=== PATIENT | male | born 1990 | race Caucasian/White ===

== ENCOUNTER → 2023-12-21 10:01 | Outpatient (REF) | payer MEDICARE, SELFPAY | LOC: HWRCS 10:01 | PROVIDERS: ATTENDING PHYSICIAN Family Medicine | DX: I10 Essential (primary) hypertension (principal) | CPT/HCPCS: 93306 ==

== ENCOUNTER 2025-05-11 01:15 | Emergency (ER) | payer OTHER, SELFPAY ==
[2025-05-11 01:16] VITALS: BP 142/94
--- NOTE | 2025-05-11 02:32 | EDRN ---
Lawrence tape applied with cast shoe as well.
--- NOTE | 2025-05-11 02:37 | ED.MUSCINJ ---
HPI-Injury
General
Chief Complaint: Musculo-Skeletal Complaint
Source: patient and family
Time Seen by Provider: 05/11/25 01:23
Nursing documentation reviewed up to this point in time: agreed with
History of Present Illness-Injury
Initial Injury comments:
Note:
CHIEF COMPLAINT(S)
Toe injury with pain and possible dislocation.
HISTORY OF PRESENT ILLNESS
The patient is a 35-year-old male who presents with a toe injury. The patient reports he accidentally struck his toe against a door frame with significant force, which caused immediate pain such that he had to sit down, describing that he was
'seeing stars.' Upon examination of his toe, he noted that it appeared 'loose' and 'floppy.' The patient attempted to apply pressure to the affected area, which increased the pain. He describes persistent discomfort that worsens with pressure
application. The injury primarily affects the little toe, with concerns of it potentially being slightly dislocated, as suggested by its floppiness and alignment.
REVIEW OF SYSTEMS
- Musculoskeletal: Experiencing pain and potential dislocation in the little toe, as described by floppiness and increased pain upon pressure.
PHYSICAL EXAM
General: Alert, no acute distress.
Skin: Warm, dry.
Head: Normocephalic, atraumatic.
Neck: Supple, trachea midline.
Eye Ears, nose, mouth and throat: Oral mucosa moist.
Cardiovascular: Normal peripheral perfusion, No edema.
Respiratory: Respirations are non-labored.
Gastrointestinal : Abdomen nondistended
Musculoskeletal: Abnormal findings reported in the toe (patient-reported floppiness, increased pain upon pressure).
Neurological: Alert and oriented to person, place, time, and situation, No focal neurological deficit observed.
Psychiatric: Cooperative, appropriate mood & affect.
PLAN
1. Perform a physical assessment to evaluate the extent of the toe injury and determine if dislocation or fracture is present.
2. Discuss potential imaging such as an X-ray if dislocation or fracture is suspected based on the physical examination.
3. Discuss treatment options based on findings, which could include pain management and possible referral for orthopedic intervention if necessary.
DIFFERENTIAL DIAGNOSIS
The Differential Diagnosis includes, in no particular order and is not limited to:
1. Toe fracture-not seen on x-ray
2. Toe dislocation-distal dislocation
3. Soft tissue injury such as a sprain
4. Ligamentous injury
5. Contusion
6. Nail bed injury�no injury seen.
7. Metatarsal fracture�no fracture seen on x-ray
8. Subluxation
9. Tendon injury
CARE-UPDATE
05/11/25 - :02
Performed reduction of the distal phalanx on the right first toe successfully. Patient exhibited no immediate complications. Ordered post-reduction X-rays to confirm joint alignment.
CARE-UPDATE
05/11/25:26
Multiple attempts to reduce the toe have been unsuccessful on follow-up x-ray. The patient refused another attempt at reduction. He will be placed in a cast. The patient presents with good pulse, motor, and sensory function in the affected toe.
Follow-up with orthopedics is planned.
Disposition:
SUMMARY OF ENCOUNTER
The patient presented with a dislocated fifth toe on the right foot after striking it against a door frame. Multiple attempts to reduce the dislocation in the emergency department were unsuccessful. The toe remained dislocated, and the patient was
placed in a cast. Laura taping was applied, and follow-up care was discussed.
PLAN
The patient is advised to keep the toe laura-taped and to follow up with [facility] for further management.
INDEPENDENT REVIEW OF LABS AND INTERPRETATION OF TESTS
My independent interpretation of the x-rays provided indicates a distal dislocation of the fifth toe on the right foot.
PROCEDURES
Attempted reduction of the distal phalanx on the right fifth toe was performed but was unsuccessful.
FOLLOW-UP INSTRUCTIONS
The patient is instructed to follow up with [facility] for further evaluation and management.
MEDICAL DECISION MAKING
- Number and Complexity of Problems Addressed: Chronic conditions affecting care include a dislocated toe. Differential diagnosis includes toe fracture, toe dislocation, soft tissue injury such as a sprain, ligamentous injury, contusion, nail bed
injury, metatarsal fracture, subluxation, tendon injury, and acute gout attack.
- Data:
Category 1: My independent interpretation of x-rays indicates a distal dislocation of the right fifth toe.
-Risk: Prescription medication was not prescribed as the focus is on orthopedic follow-up and stabilization of the injury.
DIAGNOSIS
Dislocated right fifth toe, ICD-10: S93.116.
Phy Exam
Physical Exam
Physical Exam:
.
Injury Course
Orders/Labs/Results
Orders:
Orders
05/11/25 01:19
Toes 2 Views, Right [CR Toe(s) Min 2 Vw Right] Urgent
Comment:
Reason For Exam: JAMMED TOE
Indicate Which Toe:: Fifth
05/11/25 02:01
Toes 2 Views, Right [CR Toe(s) Min 2 Vw Right] Urgent
Comment:
Reason For Exam: post reduction
*Pulse Oximetry
SaO2: 98
Oxygen Mode of Delivery: Room air
Patient hypoxic: no
*Critical Care Note
Total Time (30-74mins, 75-104mins- exclusive of procedures): Not Applicable
ED Attending Note
-
Portions of this chart may have been created with voice recognition software.� Occasional wrong word or��sound alike� substitutions may have occurred due to the inherent limitations of voice recognition software.
Discharge Plan
Departure
Patient Disposition: Home (Routine Discharge)
Date of Disposition: 05/11/25
Time of Disposition: 02:41
Patient with high blood pressure during this ER visit?: Yes
Discharge Problem:
Closed dislocation of toe of right foot, Contusion of fifth toe
Instructions: Contusion (DC), Using Cold for Pain, BLOOD PRESSURE
Referrals:
Manuela Sheehan I. DO [Active, Orthopedics]
Deandre Singh MD [Family Provider, Family Practice]
Activity Restrictions/Additional Instructions:
Thank You for choosing [facility].
It was a pleasure meeting you and taking part in your care. We hope for your continued healing and wellness.
Please read discharge instructions in their entirety. However, they are for general education and may not describe your exact diagnosis at discharge. Information on your ER visit and medical conditions were discussed with you along with appropriate
follow up information...
If indicated, please take your medications as instructed and indicated on discharge paperwork.
Please schedule a follow up appointment as directed. Call to schedule an appointment
Please return to the emergency department with ANY change in, persisting, or worsening of symptoms. If any of your symptoms do not improve, or persist, or become more severe within 6-12 hours, please return to the emergency department for further
care.
Please return to the emergency department if you develop a headache, neck pain/stiffness, fever greater than 100.4F, chest pain, shortness of breath, persistent nausea, vomiting, slurred speech, difficulty walking, numbness/tingling, weakness, signs
of infection or any other symptoms that are worrisome to you.
If you have any questions or concerns please do not hesitate to call the Hospital at .
Interventions
Interventions:
*Risk Screen - Suicide Last Done: 05/11/25 02:13
*General Assessment Last Done: 05/11/25 02:13
*Neglect/Abuse Screening Last Done: 05/11/25 02:55
*ED- Fall Risk Assessment Last Done: 05/11/25 02:13
*ED COVID-19 Vaccine History Last Done: 05/11/25 02:55
*ED Influenza Vaccine History Last Done: 05/11/25 02:55
*Nursing Disposition Last Done: 05/11/25 02:55
ED-Musculoskeletal Assessment Last Done: 05/11/25 02:13
Discharge Date and Time
Discharge Date/Time: 05/11/25 02:56
Print Language: PASHTO
== END 2025-05-11 02:56 | disposition home or self-care (01) ==
LOC: EMR 01:15
PROVIDERS: EMERGENCY PHYSICIAN Student in an Organized Health Care Education/Training Program; FAMILY PHYSICIAN Family Medicine
DX: S93.104A Unspecified dislocation of right toe(s), initial encounter (principal); S90.121A Contusion of right lesser toe(s) without damage to nail, initial encounter; W22.09XA Striking against other stationary object, initial encounter
CPT/HCPCS: 99283; 28660; 73660; 99284